=== PATIENT | female | born 1960 | race Caucasian/White ===

== ENCOUNTER 2016-09-26 09:07 | Emergency (ER) | payer OTHER ==
[2016-09-26 09:24] LABS: BASOPHIL 0.3 % (0-2); EOSINOPHIL 0.1 % (0-5); HCT 44.6 % (37.0-47.0); HGB 14.3 g/dl (12.5-16.0); LYMPHOCYTE 14.5 % (15-48); MCH 29.5 pg (25.0-31.0); MCHC 32.1 g/dL (32.0-36.0); MCV 92.1 fL (78.0-100.0); MPV 10.5 fL (6.0-9.5); NEUTROPHIL 73.1 % (41-80); PLT 353 K/uL (150-400); RBC 4.84 M/uL (4.20-5.40); RDW 15.1 % (11.5-14.0); WBC 10.5 K/uL (4.0-10.5)
[2016-09-26 09:38] LABS: INR 1.05 (0.9-1.2); PROTHROMBIN TIME 13.3 SECONDS (11.7-14.0); PTT 27.9 SECONDS (23.2-31.4)
[2016-09-26 09:39] LABS: D-DIMER 0.66 ug/mLFEU (0.00-0.41)
[2016-09-26 09:46] LABS: TROPONIN T < 0.010 ng/mL
[2016-09-26 09:47] LABS: LACTIC ACID 2.3 mmol/L (0.5-2.2); PRO-BNP 1680 pg/mL (0-125)
[2016-09-26 09:57] LABS: ALBUMIN 4.1 g/dL (3.5-5.0); BILIRUBIN - TOTAL 0.3 mg/dL (0.1-1.0); CREATININE 0.5 mg/dL (0.5-1.0); GLOBULIN (CALCULATION) 3.8 g/dL (2.2-4.2); POTASSIUM 4.5 mmol/L (3.5-5.1); TOTAL PROTEIN 7.9 g/dL (6.4-8.3)
[2016-09-26 10:33] LABS: BILIRUBIN 1+ mg/dL (NEGATIVE); BLOOD 1+ Ery/uL (NEGATIVE); CLARITY HAZY (CLEAR); COLOR YELLOW (YELLOW); GLUCOSE (U) NORMAL (NORMAL); KETONE (U) 2+ (MODERATE) mg/dL (NEGATIVE); LEUKOCYTES NEGATIVE Leu/uL (NEGATIVE); NITRITE NEGATIVE (NEGATIVE); PROTEIN 3+ mg/dL (NEGATIVE); SPECIFIC GRAVITY >=1.030 (1.001-1.030); UROBILINOGEN 0.2 mg/dL (0.2-1.0); pH 5.5 (5.0-9.0)
[2016-09-26 10:34] LABS: AMORPHOUS URATES CRYSTALS LARGE; SQUAMOUS EPITHELIAL CELLS RARE; URINARY RBC RARE; URINARY WBC RARE
[2016-09-26 10:37] LABS: AMPHETAMINES NEGATIVE (NEGATIVE); BENZODIAZEPINES POSITIVE (NEGATIVE); COCAINE NEGATIVE (NEGATIVE)
[2016-09-26 10:38] LABS: BARBITURATES NEGATIVE (NEGATIVE); MARIJUANA (THC) NEGATIVE (NEGATIVE); METHADONE NEGATIVE (NEGATIVE); TRICYCLIC ANTIDEPRESSANT POSITIVE (NEGATIVE)
== END 2016-09-26 15:00 | disposition other institution (70) ==
LOC: FER 09:07
PROVIDERS: Emergency Medicine
DX: J96.01 Acute respiratory failure with hypoxia (principal); J18.9 Pneumonia, unspecified organism; R82.90 Unspecified abnormal findings in urine; I25.10 Atherosclerotic heart disease of native coronary artery without angina pectoris; I11.9 Hypertensive heart disease without heart failure; J42 Unspecified chronic bronchitis; F15.10 Other stimulant abuse, uncomplicated; F11.10 Opioid abuse, uncomplicated; F19.10 Other psychoactive substance abuse, uncomplicated; G40.909 Epilepsy, unspecified, not intractable, without status epilepticus; F32.9 Major depressive disorder, single episode, unspecified; Z79.51 Long term (current) use of inhaled steroids; Z79.899 Other long term (current) drug therapy
CPT/HCPCS: 31500; 36415; 36600; 70450; 71010; 71275; 80053; 80305; 81001; 82803; 83605; 83880; 84484; 85025; 85379; 85610; 85730; 87040; 87804; 87899; 92950; 93005; 94002; 94640; 94770; 96374; J1956; J2060; J2310; J2405; J2704; J2930; Q9967

== ENCOUNTER 2020-05-03 10:16 | Inpatient (IN) | payer OTHER ==
[~2020-05-03 10:16] MED LIST: BREO ELLIPTA 11 EACH INH; CEFDINIR300 MG PO; COZAAR 25MG TAB25 MG PO; DUONEB 2.5-0.5M1 AMP NEB; FLEXERIL10 MG PO; GABAPENTIN800 MG PO; HYDROCODONE-APA1 TAB PO; IMITREX50 MG PO; INCRUSE ELLI62.5 MCG INH; KEPPRA1000 MG PO; LIPITOR 10MG TA10 MG PO; MEDROL 4MG DOSEP4 MG PO; MELOXICAM15 MG PO; METOPROLOL SUCC50 MG PO; NICOTINE PATCH1 EAC2 TD; PAXIL20 MG PO; QUETIAPINE FUMA50 MG PO; SEROQUEL 100MG100 MG PO; SINGULAIR10 MG PO; SPIRIVA 2.5 MCG; SYMBICORT 16010.2 GM INH; SYNTHROID25 MCG PO; VENTOLIN HFA IN18 GM INH; VISTARIL25 MG PO
[2020-05-03 11:24] LABS: BILIRUBIN NEGATIVE (NEGATIVE); BLOOD NEGATIVE Ery/uL (NEGATIVE); CLARITY CLEAR (CLEAR); COLOR YELLOW (YELLOW); GLUCOSE (U) NORMAL (NORMAL); LEUKOCYTES NEGATIVE Leu/uL (NEGATIVE); NITRITE NEGATIVE (NEGATIVE); PROTEIN NEGATIVE (NEGATIVE); SPECIFIC GRAVITY 1.025 (1.001-1.030); UROBILINOGEN 0.2 mg/dL (0.2-1.0)
[2020-05-03 11:26] LABS: BASOPHIL 0.2 % (0-2); EOSINOPHIL 0 % (0-5); HCT 43.1 % (37.0-47.0); HGB 13.6 g/dl (12.5-16.0); LYMPHOCYTE 10.5 % (15-48); MCH 29.6 pg (25.0-31.0); MCHC 31.6 g/dL (32.0-36.0); MCV 93.9 fL (78.0-100.0); MONOCYTE 3.3 % (0-12); MPV 10.4 fL (6.0-9.5); NEUTROPHIL 85.4 % (41-80); NRBC 0; PLT 263 K/uL (150-400); RBC 4.59 M/uL (4.20-5.40); RDW 13.5 % (11.5-14.0); WBC 9.5 K/uL (4.0-10.5)
[2020-05-03 11:28] LABS: BARBITURATES NEGATIVE (NEGATIVE); ECSTASY (MDMA) NEGATIVE (NEGATIVE); MARIJUANA (THC) NEGATIVE (NEGATIVE); METHADONE NEGATIVE (NEGATIVE); OPIATES NEGATIVE (NEGATIVE)
[2020-05-03 11:29] LABS: AMPHETAMINES NEGATIVE (NEGATIVE); OXYCODONE POSITIVE (NEGATIVE)
[2020-05-03 11:42] LABS: INR 1.05 (0.9-1.2)
[2020-05-03 11:44] LABS: ACETAMINOPHEN (TYLENOL) 2.1 ug/mL (10.0-30.0); ALBUMIN 3.2 g/dL (3.4-5.0); ALKALINE PHOSHATASE 88 U/L (46-116); ALT 15 U/L (14-59); AST 20 U/L (15-37); BILIRUBIN - TOTAL 0.1 mg/dL (0.2-1.0); BUN 15 mg/dL (7-18); BUN/CREAT RATIO (CALC) 29.4 RATIO; CHLORIDE 106 mmol/L (98-107); CO2 (BICARBONATE) 25 mmol/L (21-32); CPK 287 U/L (26-192); CREATININE 0.51 mg/dL (0.51-0.95); GLOBULIN (CALCULATION) 3.5 g/dL; GLUCOSE 109 mg/dL (74-106); LIPASE 59 U/L (73-393); POTASSIUM 4.6 mmol/L (3.5-5.1); TOTAL PROTEIN 6.7 g/dL (6.4-8.2)
[2020-05-03 11:45] LABS: IRON % SATURATION 11.4 %SAT (20-50)
[2020-05-03 12:00] LABS: PTT 19.8 SECONDS (22.2-34.7)
[2020-05-03] MEDS ORDERED: BUPRENORPHN-NA1 EACH SL (16:09)
[2020-05-03] MEDS ORDERED: LEXAPRO 10MG TA10 MG PO (16:10)
[2020-05-03] MEDS ORDERED: GABAPENTIN600 MG PO (16:11)
[2020-05-03] MEDS ORDERED: NAPROXEN500 MG PO (16:12)
[2020-05-03] MEDS ORDERED: NARCAN4 MG INH (16:14)
[2020-05-03] MEDS ORDERED: SEROQUEL300 MG PO (16:15)
[2020-05-04 05:14] LABS: BASOPHIL 0.2 % (0-2); EOSINOPHIL 0.4 % (0-5); HCT 37.2 % (37.0-47.0); HGB 11.4 g/dl (12.5-16.0); LYMPHOCYTE 30.5 % (15-48); MCH 28.9 pg (25.0-31.0); MCHC 30.6 g/dL (32.0-36.0); MCV 94.4 fL (78.0-100.0); MONOCYTE 5.8 % (0-12); MPV 10.4 fL (6.0-9.5); NEUTROPHIL 62.9 % (41-80); NRBC 0; PLT 241 K/uL (150-400); RBC 3.94 M/uL (4.20-5.40); RDW 13.6 % (11.5-14.0); WBC 8.5 K/uL (4.0-10.5)
[2020-05-04 05:24] LABS: INR 1.11 (0.9-1.2); PROTHROMBIN TIME 13.6 SECONDS (11.4-13.6); PTT 24.9 SECONDS (22.2-34.7)
[2020-05-04 05:32] LABS: ALBUMIN 2.7 g/dL (3.4-5.0); BILIRUBIN - TOTAL 0.2 mg/dL (0.2-1.0); BUN/CREAT RATIO (CALC) 20.3 RATIO; CREATININE 0.59 mg/dL (0.51-0.95); MAGNESIUM 1.9 mg/dL (1.8-2.4); PHOSPHORUS 2.2 mg/dL (2.6-4.7); POTASSIUM 3.4 mmol/L (3.5-5.1); TOTAL PROTEIN 5.7 g/dL (6.4-8.2)
[2020-05-04] MEDS ORDERED: VENTOLIN HFA IN18 GM INH (11:03)
[2020-05-04] MEDS ORDERED: BREO ELLIPTA 11 EACH INH (11:04)
[2020-05-04] MEDS ORDERED: PAXIL20 MG PO (11:04)
[2020-05-04] MEDS ORDERED: INCRUSE ELLI62.5 MCG INH (11:04)
[2020-05-04] MEDS ORDERED: BACLOFEN 20MG T20 MG PO (11:05)
[2020-05-04] MEDS ORDERED: IMITREX50 M1 PO (11:05)
[2020-05-05 05:49] LABS: BASOPHIL 0.2 % (0-2); EOSINOPHIL 0.1 % (0-5); HCT 40.2 % (37.0-47.0); HGB 12.5 g/dl (12.5-16.0); LYMPHOCYTE 14.4 % (15-48); MCH 29.3 pg (25.0-31.0); MCHC 31.1 g/dL (32.0-36.0); MCV 94.4 fL (78.0-100.0); MONOCYTE 3.9 % (0-12); MPV 11.5 fL (6.0-9.5); NEUTROPHIL 80.7 % (41-80); NRBC 0; PLT 292 K/uL (150-400); RBC 4.26 M/uL (4.20-5.40); RDW 13.7 % (11.5-14.0); WBC 8.5 K/uL (4.0-10.5)
[2020-05-05 06:14] LABS: ALBUMIN 3.3 g/dL (3.4-5.0); BILIRUBIN - TOTAL 0.3 mg/dL (0.2-1.0); CREATININE 0.5 mg/dL (0.51-0.95); GLOBULIN (CALCULATION) 3.2 g/dL; MAGNESIUM 1.7 mg/dL (1.8-2.4); PHOSPHORUS 2.4 mg/dL (2.6-4.7); POTASSIUM 3.7 mmol/L (3.5-5.1); TOTAL PROTEIN 6.5 g/dL (6.4-8.2)
[2020-05-06 05:47] LABS: BASOPHIL 0.3 % (0-2); EOSINOPHIL 0.3 % (0-5); HCT 40.4 % (37.0-47.0); HGB 12.5 g/dl (12.5-16.0); LYMPHOCYTE 15.3 % (15-48); MCH 28.8 pg (25.0-31.0); MCHC 30.9 g/dL (32.0-36.0); MCV 93.1 fL (78.0-100.0); MONOCYTE 6.1 % (0-12); MPV 10.2 fL (6.0-9.5); NEUTROPHIL 77.6 % (41-80); NRBC 0; PLT 270 K/uL (150-400); RBC 4.34 M/uL (4.20-5.40); RDW 13.6 % (11.5-14.0); WBC 14.8 K/uL (4.0-10.5)
[2020-05-06 06:06] LABS: ALBUMIN 3.4 g/dL (3.4-5.0); BILIRUBIN - TOTAL 0.5 mg/dL (0.2-1.0); BUN/CREAT RATIO (CALC) 15.6 RATIO; CREATININE 0.45 mg/dL (0.51-0.95); GLOBULIN (CALCULATION) 3.3 g/dL; MAGNESIUM 1.9 mg/dL (1.8-2.4); PHOSPHORUS 2.3 mg/dL (2.6-4.7); POTASSIUM 2.8 mmol/L (3.5-5.1); TOTAL PROTEIN 6.7 g/dL (6.4-8.2)
--- NOTE | 2020-05-06 09:33 | NUR ---
PT LIVES WITH BOYFRIEND; HAS HOME O2; SOCIAL SERVICE HAS CONSULT AND WORKING WITH [employer]
--- NOTE | 2020-05-06 10:38 | NUR ---
06/06/20 Pt lives with former spouse and daughter. She has 02 and a cane. Ms. Henry reports to use the 02 at night prn and not to use the cane.
[2020-05-07 06:07] LABS: HCT 43.1 % (37.0-47.0); HGB 14.2 g/dl (12.5-16.0); MCH 29.2 pg (25.0-31.0); MCHC 32.9 g/dL (32.0-36.0); MCV 88.5 fL (78.0-100.0); MPV 10.3 fL (6.0-9.5); RBC 4.87 M/uL (4.20-5.40); RDW 13.4 % (11.5-14.0)
[2020-05-07 06:44] LABS: BUN/CREAT RATIO (CALC) 14.6 RATIO; CREATININE 0.48 mg/dL (0.51-0.95); POTASSIUM 2.9 mmol/L (3.5-5.1)
[2020-05-07] MEDS ORDERED: NORVASC5 MG PO (07:34)
[2020-05-07] MEDS ORDERED: LOPRESSOR50 MG PO (07:34)
--- NOTE | 2020-05-07 11:24 | NUR ---
PT HOME NEURONTIN TABS COUNTED PER PHARMACIST 600 MG TABS, 10 LEFT ON HAND IN BOTTLE. PT WANTED THEM SENT HOME WITH HER BOYFRIEND AT TIME OF HER TRANSFER TO THE [facility]. NEURONTIN GIVEN TO BOYFRIEND TO TAKE HOME AT THIS TIME.
== END 2020-05-07 11:50 | disposition other institution (70) | DRG 918 ==
LOC: FER 10:16 → FICU 14:03 → FTCU 05-05 14:19
PROVIDERS: Emergency Medicine; Hospitalist; ADMIT Internal Medicine
DX: T42.6X2A Poisoning by other antiepileptic and sedative-hypnotic drugs, intentional self-harm, initial encounter (principal); S22.39XA Fracture of one rib, unspecified side, initial encounter for closed fracture; J96.10 Chronic respiratory failure, unspecified whether with hypoxia or hypercapnia; J44.9 Chronic obstructive pulmonary disease, unspecified; G40.909 Epilepsy, unspecified, not intractable, without status epilepticus; G43.909 Migraine, unspecified, not intractable, without status migrainosus; T50.992A Poisoning by other drugs, medicaments and biological substances, intentional self-harm, initial encounter; I10 Essential (primary) hypertension; F31.9 Bipolar disorder, unspecified; G89.4 Chronic pain syndrome; F17.200 Nicotine dependence, unspecified, uncomplicated; Z91.14 Patient's other noncompliance with medication regimen; I25.2 Old myocardial infarction; E03.9 Hypothyroidism, unspecified; Z95.5 Presence of coronary angioplasty implant and graft; M19.90 Unspecified osteoarthritis, unspecified site; Z98.890 Other specified postprocedural states; F17.210 Nicotine dependence, cigarettes, uncomplicated; Z88.0 Allergy status to penicillin; Z88.2 Allergy status to sulfonamides; E87.6 Hypokalemia; E83.52 Hypercalcemia; E83.39 Other disorders of phosphorus metabolism
CPT/HCPCS: 36415; 36600; 70450; 71045; 71250; 80048; 80053; 80305; 81003; 82009; 82550; 82803; 83540; 83550; 83605; 83690; 83735; 84100; 84484; 85025; 85610; 85730; 87040; 87449; 93005; 94640; 94667; 94668; C9113; G0480; J0610; J0780; J1650; J2270; J2405; J2916; J3360; J3475; J7030; J7040; J7050; U0002

== ENCOUNTER 2020-05-17 13:49 | Emergency (ER) | payer OTHER ==
[~2020-05-17 13:49] MED LIST changes: +BACLOFEN 20MG T20 MG PO; +BUPRENORPHN-NA1 EACH SL; +GABAPENTIN600 MG PO; +IMITREX50 M1 PO; +LEXAPRO 10MG TA10 MG PO; +LOPRESSOR50 MG PO; +NAPROXEN500 MG PO; +NARCAN4 MG INH; +NORVASC5 MG PO; +SEROQUEL300 MG PO
[2020-05-17 18:15] LABS: BASOPHIL 0.4 % (0-2); EOSINOPHIL 1.2 % (0-5); HGB 15.3 g/dl (12.5-16.0); LYMPHOCYTE 38.2 % (15-48); MCH 29.6 pg (25.0-31.0); MCHC 31.2 g/dL (32.0-36.0); MCV 94.8 fL (78.0-100.0); MONOCYTE 6.6 % (0-12); MPV 11.1 fL (6.0-9.5); NEUTROPHIL 53.3 % (41-80); NRBC 0; PLT 343 K/uL (150-400); RBC 5.17 M/uL (4.20-5.40); RDW 14.1 % (11.5-14.0); WBC 12.1 K/uL (4.0-10.5)
[2020-05-17 18:22] LABS: BARBITURATES NEGATIVE (NEGATIVE); MARIJUANA (THC) NEGATIVE (NEGATIVE)
[2020-05-17 18:23] LABS: AMPHETAMINES NEGATIVE (NEGATIVE); ECSTASY (MDMA) NEGATIVE (NEGATIVE); METHADONE NEGATIVE (NEGATIVE); OPIATES NEGATIVE (NEGATIVE); OXYCODONE POSITIVE (NEGATIVE)
[2020-05-17 18:42] LABS: ACETAMINOPHEN (TYLENOL) < 2.0 ug/mL (10.0-30.0); ALBUMIN 3.6 g/dL (3.4-5.0); ALKALINE PHOSHATASE 94 U/L (46-116); ALT 26 U/L (14-59); AST 18 U/L (15-37); BILIRUBIN - TOTAL 0.4 mg/dL (0.2-1.0); BUN 16 mg/dL (7-18); BUN/CREAT RATIO (CALC) 26.7 RATIO; CHLORIDE 105 mmol/L (98-107); CO2 (BICARBONATE) 26 mmol/L (21-32); GLOBULIN (CALCULATION) 3.8 g/dL; GLUCOSE 96 mg/dL (74-106); POTASSIUM 6.1 mmol/L (3.5-5.1); TOTAL PROTEIN 7.4 g/dL (6.4-8.2)
[2020-05-17 21:23] LABS: CORONAVIRUS 2019 SARS-COV-2 NEGATIVE (NEGATIVE); INFLUENZA A NAA NEGATIVE (NEGATIVE)
== END 2020-05-18 00:01 | disposition other institution (70) ==
LOC: FER 13:49
PROVIDERS: Emergency Medicine
DX: F19.10 Other psychoactive substance abuse, uncomplicated (principal); J44.9 Chronic obstructive pulmonary disease, unspecified; F17.200 Nicotine dependence, unspecified, uncomplicated; Z88.0 Allergy status to penicillin; Z88.2 Allergy status to sulfonamides; Z20.822 Contact with and (suspected) exposure to COVID-19
CPT/HCPCS: 36415; 80053; 80305; 84132; 85025; 99285; G0480; U0002

== ENCOUNTER 2020-10-17 19:13 | Emergency (ER) | payer OTHER ==
[2020-10-17 19:45] LABS: BASOPHIL 0.6 % (0-2); EOSINOPHIL 1.1 % (0-5); HCT 50.6 % (37.0-47.0); HGB 16.2 g/dl (12.5-16.0); MCH 30.3 pg (25.0-31.0); MCV 94.6 fL (78.0-100.0); MONOCYTE 7.3 % (0-12); MPV 10.9 fL (6.0-9.5); NEUTROPHIL 72.6 % (41-80); NRBC 0.2; PLT 273 K/uL (150-400); RBC 5.35 M/uL (4.20-5.40); RDW 14.3 % (11.5-14.0); WBC 11.2 K/uL (4.0-10.5)
[2020-10-17 19:53] LABS: INR 0.98 (0.9-1.2); PROTHROMBIN TIME 12.4 SECONDS (11.8-13.4)
[2020-10-17 20:22] LABS: ALBUMIN 4.2 g/dL (3.4-5.0); ALKALINE PHOSHATASE 111 U/L (46-116); ALT 23 U/L (14-59); AST 30 U/L (15-37); BILIRUBIN - TOTAL 0.4 mg/dL (0.2-1.0); BUN 37 mg/dL (7-18); BUN/CREAT RATIO (CALC) 41.6 RATIO; CHLORIDE 105 mmol/L (98-107); CO2 (BICARBONATE) 29 mmol/L (21-32); CPK 331 U/L (26-192); CREATININE 0.89 mg/dL (0.51-0.95); GLOBULIN (CALCULATION) 4.3 g/dL; GLUCOSE 108 mg/dL (74-106); POTASSIUM 4.9 mmol/L (3.5-5.1); TOTAL PROTEIN 8.5 g/dL (6.4-8.2)
[2020-10-17 20:23] LABS: ACETAMINOPHEN (TYLENOL) < 2.0 ug/mL (10.0-30.0); LACTIC ACID 1.9 mmol/L (0.4-1.9)
[2020-10-17 21:33] LABS: ECSTASY (MDMA) NEGATIVE (NEGATIVE); MARIJUANA (THC) NEGATIVE (NEGATIVE); METHADONE NEGATIVE (NEGATIVE); OPIATES NEGATIVE (NEGATIVE)
[2020-10-17 21:34] LABS: AMPHETAMINES NEGATIVE (NEGATIVE); BARBITURATES NEGATIVE (NEGATIVE); OXYCODONE NEGATIVE (NEGATIVE)
[2020-10-17 21:43] LABS: BILIRUBIN NEGATIVE (NEGATIVE); BLOOD NEGATIVE Ery/uL (NEGATIVE); CLARITY CLEAR (CLEAR); COLOR YELLOW (YELLOW); GLUCOSE (U) NORMAL (NORMAL); LEUKOCYTES NEGATIVE Leu/uL (NEGATIVE); NITRITE NEGATIVE (NEGATIVE); PROTEIN TRACE (LOW) mg/dL (NEGATIVE); SPECIFIC GRAVITY 1.025 (1.001-1.030); UROBILINOGEN 0.2 mg/dL (0.2-1.0); pH 5.5 (5.0-9.0)
[2020-10-17 21:49] LABS: URINARY RBC RARE; URINARY WBC RARE
[2020-10-17 21:50] LABS: BACTERIA TRACE; SQUAMOUS EPITHELIAL CELLS RARE
== END 2020-10-18 02:35 | disposition other institution (70) ==
LOC: FER 19:13
PROVIDERS: Emergency Medicine Emergency Medical Services
DX: G40.901 Epilepsy, unspecified, not intractable, with status epilepticus (principal); R41.82 Altered mental status, unspecified; Z79.899 Other long term (current) drug therapy
CPT/HCPCS: 36415; 36600; 70450; 71045; 72125; 72170; 80053; 80305; 81001; 82550; 82803; 83605; 84145; 84484; 85025; 85610; 85730; 87088; 93005; 96374; 96375; G0480; J0330; J1953; J2060; J2250; J2310; J2405; J2704; J3010; J7030